=== PATIENT | female | born 1970 | race Caucasian/White ===

== ENCOUNTER 2018-12-03 15:33 | Emergency (ER) | payer OTHER ==
[~2018-12-03] VITALS: Ht 162.6 cm; Wt 79.8 kg
== END 2018-12-03 19:10 | disposition home or self-care (01) ==
LOC: ER 15:33
DX: S40.011A Contusion of right shoulder, initial encounter (principal); W20.8XXA Other cause of strike by thrown, projected or falling object, initial encounter; Y93.89 Activity, other specified; Y92.813 Airplane as the place of occurrence of the external cause; Y99.8 Other external cause status